=== PATIENT | female | born 2000 | race Caucasian/White ===

== ENCOUNTER 2021-06-26 13:32 | Outpatient (CLI) | payer OTHER | END 2021-06-26 15:22 | disposition home or self-care (01) | LOC: GENOP 13:32 | DX: O99.891 Other specified diseases and conditions complicating pregnancy (principal); R10.13 Epigastric pain; R03.0 Elevated blood-pressure reading, without diagnosis of hypertension; R11.0 Nausea; R51.9 Headache, unspecified; O36.8130 Decreased fetal movements, third trimester, not applicable or unspecified; O99.333 Smoking (tobacco) complicating pregnancy, third trimester; F17.210 Nicotine dependence, cigarettes, uncomplicated; Z3A.33 33 weeks gestation of pregnancy | CPT/HCPCS: 81001; G0463 ==